=== PATIENT | female | born 1965 | race Caucasian/White ===

== ENCOUNTER → 2020-04-09 17:19 | Outpatient (CLI) | payer OTHER, SELFPAY ==
--- NOTE | ~2020-04-09 | MM_ITS ---
EXAMINATION: MM screening loli BI w halle HISTORY: Screening mammogram TECHNIQUE: Craniocaudal and mediolateral oblique 3-D tomosynthesis images were obtained and synthetic 2-D images were generated. CAD analysis was submitted and interpreted. COMPARISON: 04/17/2018, 06/19/2016, 06/14/2015 BREAST PARENCHYMAL COMPOSITION: There are scattered areas of fibroglandular density. FINDINGS: There is stable focal asymmetry in the upper outer quadrant of the right breast. There is n o evidence of suspicious mass, calcification, or architectural distortion to suggest malignancy in ei ther breast. There has been no suspicious interval change. IMPRESSION: 1. No mammographic evidence of malignancy. 2. Recommend routine screening mammography in one year. BI-RADS Category 2: Benign finding(s). Reviewed, dictated and finalized at location A. RAISING CONSULTANT
== END ==
PROVIDERS: Visit Provider Internal Medicine
DX: Z12.31 Encounter for screening mammogram for malignant neoplasm of breast (principal)
CPT/HCPCS: 77063; 77067

== ENCOUNTER → 2022-04-02 16:09 | Outpatient (CLI) | payer BC, SELFPAY ==
--- NOTE | ~2022-04-02 | MM_ITS ---
EXAMINATION: MM screening loli BI w halle HISTORY: Screening TECHNIQUE: Craniocaudal and mediolateral oblique 3-D tomosynthesis images were obtained and synthetic 2-D images were generated. CAD analysis was submitted and interpreted. COMPARISON: Comparison to multiple prior studies sequentially, with oldest reviewed study dated 03/2013. BREAST PARENCHYMAL COMPOSITION: There are scattered areas of fibroglandular density. FINDINGS: There is no evidence of suspicious mass, calcification, or architectural distortion to sugg est malignancy in either breast. There has been no suspicious interval change. IMPRESSION: 1. No mammographic evidence of malignancy. 2. Recommend routine screening mammography in one year. BI-RADS Category 1: Negative Reviewed, dictated and finalized at location A. E GLAZER
== END ==
PROVIDERS: PCP Internal Medicine; Visit Provider Internal Medicine
DX: Z12.31 Encounter for screening mammogram for malignant neoplasm of breast (principal)
CPT/HCPCS: 77063; 77067

== ENCOUNTER 2023-03-06 09:06 | Emergency (ER) | payer BC, SELFPAY ==
--- NOTE | ~2023-03-06 | XR_ITS ---
EXAMINATION: XR chest 2V DATE: 03/06/2023 10:00 INDICATION: Cough. Chest tightness. TECHNIQUE: Frontal and lateral views of the chest were obtained on 3 radiographs. COMPARISON: None. FINDINGS: There is no pneumonia, pleural effusion, or pneumothorax. The heart size is normal. IMPRESSION: 1. No acute cardiopulmonary disease. Reviewed, dictated and finalized at location A. RAL OFFICE WORKER
[2023-03-06 09:27] VITALS: BP 154/78; PULSE 78; RESP 16; TEMP 36.6; O2SAT 98
--- NOTE | 2023-03-06 09:29 | ED.ASTHMA ---
HPI - Asthma General Chief Complaint: Asthma Stated Complaint: chest hurts,cough, asthma history Time Seen by Provider: 03/06/23 09:30 Source: patient Mode of arrival: ambulatory Limitations: no limitations History of Present Illness HPI Narrative: Joleen is a 58-year-old female patient presenting to the clinic today with complaints of chest heaviness and coughing. She reports that a week before [place] she was seen at an urgent care at her work and they prescribed her some prednisone and a Symbicort inhaler. States she does have a history of asthma. Symptoms have been gradually getting worse from the changes of the temperature. She finished her prednisone last week and was feeling pretty good. States that over the last few days she developed more chest heaviness and a cough with white phlegm. Reports some bilateral back pain at the bases of her lungs. She would like to have a chest x-ray done today to evaluate for pneumonia. She denies any fever or chills. Is able to speak in full sentences. SpO2 is 98% on room air. Related Data Home Medications Medication Instructions Recorded Confirmed budesonide-formoterol HFA 80 inhalation 03/06/23 mcg-4.5 mcg/actuation aerosol inhaler (Symbicort) carvedilol 25 mg tablet mg 03/06/23 diltiazem HCl 300 mg mg PO 03/06/23 capsule,extended release 24 hr metformin 500 mg tablet mg 03/06/23 montelukast 10 mg tablet mg 03/06/23 olmesartan 40 tablet 03/06/23 mg-hydrochlorothiazide 12.5 mg tablet topiramate 50 mg tablet mg 03/06/23 trazodone 150 mg tablet mg 03/06/23 venlafaxine 100 mg tablet mg 03/06/23 Allergies Allergy/AdvReac Type Severity Reaction Status Date / Time No Known Allergies Allergy Verified 03/06/23 09:39 [facility] Comments At the time of my signature, I reviewed and agree with the nursing past medical, surgical, social, and family history. There is no relevant family history pertinent to the patient complaint. Course Course Emergency Course: Portions of this record may have been created with voice recognition software. Level of Care: Express Care Visit Vital Signs Vital signs: Vital Signs Temperature 36.6 C 03/06/23 09:27 Pulse Rate 78 03/06/23 09:27 Respiratory Rate 16 03/06/23 09:27 Blood Pressure 154/78 H 03/06/23 09:27 Pulse Oximetry 98 03/06/23 09:27 Oxygen Delivery Room Air 03/06/23 09:27 Temperature 36.6 C 03/06/23 09:27 Pulse Rate 78 03/06/23 09:27 Respiratory Rate 16 03/06/23 09:27 Blood Pressure 154/78 H 03/06/23 09:27 Pulse Oximetry 98 03/06/23 09:27 Oxygen Delivery Room Air 03/06/23 09:27 Vital signs reviewed MDM - Asthma MDM Narrative Medical decision making narrative: At the time of visit patient is resting comfortably on the exam table. Patient appears to be nontoxic. X-ray of the chest was performed and shows no sign of pneumonia. I suspect patient has mild exacerbation of asthma. Prednisone 10 day taper dose was sent to the pharmacy. Supportive measures were discussed with the patient and they voiced understanding discharge instructions and agrees to treatment plan. Return precautions reviewed Differential Diagnosis Differential diagnosis: Likely Acute exacerbation, Status asthmaticus, Acute asthmatic bronchitis, PE, Pneumonia and COPD exacerbation Imaging Data Radiologist's impression: ITS Impressions Chest X-Ray 03/06/23 10:04 IMPRESSION: 1. No acute cardiopulmonary disease. Discharge Plan Discharge Clinical Impression: Asthma Qualifiers: Asthma severity: mild Asthma persistence: intermittent Asthma complication type: uncomplicated Qualified Code(s): J45.20 - Mild intermittent asthma, uncomplicated Patient Disposition: Home, Self-Care Condition: Stable Instructions: Antibiotic Form, Asthma (ED) Additional Instructions: Take prescription medications only as prescribed-taper dose prednisone prescribed Continue current medicatio
== END 2023-03-06 10:14 | disposition home or self-care (01) ==
PROVIDERS: Emergency Provider Nurse Practitioner Family
DX: J45.20 Mild intermittent asthma, uncomplicated (principal); I10 Essential (primary) hypertension
CPT/HCPCS: 71046; 99213; G0463

== ENCOUNTER 2024-05-15 09:05 | Emergency (ER) | payer BC, SELFPAY ==
--- NOTE | 2024-05-15 09:07 | ED_ITS ---
HPI - URI/Sore Throat General Chief Complaint: Upper Respiratory Infection Stated Complaint: Sinus/Cough Time Seen by Provider: 05/15/24 09:20 Source: patient, RN notes reviewed and old records reviewed Mode of arrival: ambulatory Limitations: no limitations History of Present Illness HPI Narrative: 59-year-old female presents to the [facility] with history productive cough, sinus congestion. Has history of asthma, hypertension migraines, anxiety depression. Has been taking Coricidin. Denies any chest pain fevers. Denies shortness of breath. Last used her inhaler was yesterday. Onset (ago): day(s) (5) Related Data Home Medications ?Medication ?Instructions ?Recorded ?Confirmed ?Last Taken ?Type budesonide-formoterol HFA 80 inhalation 03/06/23 Unknown History mcg-4.5 mcg/actuation aerosol inhaler (Symbicort) carvedilol 25 mg tablet mg 03/06/23 Unknown History diltiazem HCl 300 mg mg PO 03/06/23 Unknown History capsule,extended release 24 hr metformin 500 mg tablet mg 03/06/23 Unknown History montelukast 10 mg tablet mg 03/06/23 Unknown History olmesartan 40 tablet 03/06/23 Unknown History mg-hydrochlorothiazide 12.5 mg tablet topiramate 50 mg tablet mg 03/06/23 Unknown History trazodone 150 mg tablet mg 03/06/23 Unknown History venlafaxine 100 mg tablet mg 03/06/23 Unknown History buspirone 10 mg tablet mg 05/15/24 Unknown History Allergies Allergy/AdvReac Type Severity Reaction Status Date / Time No Known Allergies Allergy Verified 05/15/24 09:10 Review of Systems Review of Systems: All systems reviewed & are unremarkable except as noted in HPI and below Constitutional: Constitutional: Reports no additional constitutional complaints ENT: Reports as per HPI and Reports nasal congestion Cardiovascular: Cardiovascular: Reports no additional cardiovascular complaints, Denies chest pain and Denies dyspnea Respiratory: Respiratory: Reports as per HPI, Denies chest congestion, Reports cough, Denies dyspnea and Denies wheezing Musculoskeletal: Musculoskeletal: Reports no additional musculoskeletal complaints Integumentary/Breasts: Skin/Breast: Reports system reviewed and no additional complaints, except as docu [facility] Past Medical History Medical History (Updated 05/15/24 @ 09:42 by Migdalia Henley APRN) History of anxiety History of migraine History of primary hypertension Social History Social History (Updated 05/15/24 @ 09:42 by Migdalia Henley APRN) Smoking status: Former smoker Comments At the time of my signature, I reviewed and agree with the nursing past medical, surgical, social, and family history. There is no relevant family history pertinent to the patient complaint. Exam Const: General: cooperative, healthy appearing, comfortable, no acute distress, well developed, alert and well nourished Nutritional Appearance: well nourished and obese Orientation/consciousness: patient oriented x3 Limitations: no limitations HENMT: Head: normal to inspection Ears: hearing grossly normal bilaterally, external ears normal, TM's normal bilaterally, EAC's normal, mastoids normal and no periauricular adenopathy Face/Nose/Sinus: Normal external nose present, Normal nares present and Normal nasal mucous membranes and turbinates present Mouth: Yes Normal oral and palatal mucosa present, Yes lip normal, Yes tongue normal and Yes moist mucous membranes Throat: uvula midline, postnasal drainage and no uvular edema Eyes: General: appearance normal, both eyes and all related structures Alignment and Position: alignment normal Neck: Neck: normal visual inspection, full ROM, no lymphadenopathy and no meningeal signs Chest: Chest palpation & inspection: normal inspection of the chest Resp: Effort & Inspection: normal respiratory effort and able to speak in complete sentences Auscultation: clear to auscultation bilaterally, no crackles, no rales, no rhonchi and no wheezes Cardio: Rate: regular rate Skin: General skin exam: normal color and no rashes or lesions noted Neuro: General: patient oriented x3, gait normal, moves all extremities and no meningeal signs Cognition (Neuro): normal cognition Speech: normal speech Gait exam (Neuro): Normal gait present Extrem: General: normal to inspection, full ROM, capillary refill normal and normal gait Psych: Appearance: grossly normal and well kempt Mental Status: mental status grossly normal Speech and movement: Normal speech and movement present and Clear speech present Affect: normal affect Attitude: cooperative Course Course Level of Care: Express Care Visit Vital Signs Vital signs: Vital Signs Temperature 98.2 F 05/15/24 09:16 Pulse Rate 70 05/15/24 09:16 Respiratory Rate 16 05/15/24 09:16 Blood Pressure 130/64 05/15/24 09:16 Pulse Oximetry 98 05/15/24 09:16 Oxygen Delivery Room Air 05/15/24 09:16 Temperature 98.2 F 05/15/24 09:16 Pulse Rate 70 05/15/24 09:16 Respiratory Rate 16 05/15/24 09:16 Blood Pressure 130/64 05/15/24 09:16 Pulse Oximetry 98 05/15/24 09:16 Oxygen Delivery Room Air 05/15/24 09:16 Reviewed MDM - URI/Sore Throat MDM Narrative Medical decision making narrative: Patient sitting comfortably in exam. Nontoxic, Vitals stable. Five day history cough, congestion. Patient reports history asthma. No acute findings exam except for postnasal drainage. Patient appropriate for outpatient treatment with close Discharge instructions reviewed with patient, as well as provided in writing per nursing staff. The instructions also include specific and strict return/GO TO THE ER as well as f/u information. All questions have been answered, and the patient deny any further questions with discharge and discharge plan. Some parts of this dictation were generated by voice recognition software and may contain typographical and/or grammatical inaccuracies. Differential Diagnosis Differential diagnosis: Likely upper respiratory infection, otitis media, sinusitis, viral infection, bronchitis, influenza and pharyngitis Critical Care Time Critical Care Time Critical Care Time: No Discharge Plan Discharge Clinical Impression: Upper respiratory infection, Bronchitis, History of asthma Patient Disposition: Home, Self-Care Condition: Stable Instructions: Antibiotic Form, Upper Respiratory Infection (ED), Acute Bronchitis (ED) Additional Instructions: It is very important to treat your symptoms. Drink plenty of water, Gatorade, Pedialyte, ice pops or Jell-O. -Alternate Tylenol and Motrin per package directions for fever or pain. You can alternate every 4 hours -Antihistamine medication such as Zyrtec/Claritin/Li during the day can help improve symptoms. -doing daily nasal irrigations can help relieve pressure your sinuses. Things like a Neti pot or neilmed saline irrigation -Use Flonase twice a day for 5 days then daily to help reduce the inflammation and dry up your sinuses. -You can also use Coricidin HBP or Mucinex. Be sure to drink plenty of water with this medication at least 8 ounces with every dose and it is important to drink 8 to 10 glasses of water per day. Water is a natural decongestant -Eat and drink things that are easy to swallow, like tea or soup, or popsicles. -Oral rinses such as: Salt water gargles and/or may use topical anesthetic (eg. Chloraseptic spray) or lozenges to relieve dryness or throat pain). -Frequent hand washing or hand radiation / chemistry technician is one of the best ways to prevent spread of infection. -Using a vaporizer or humidifier at night will also help thin secretions and help with coughing up phlegm. -Follow up with primary care provider in 7-10 days if condition is not improving - For new or worsening symptoms go directly to the nearest ER Patient Language: Albanian Prescriptions: New methylprednisolone [Medrol (Javier)] 4 mg tablets,dose pack See Rx Instructions PO .COMPLEX Qty: 21 0RF Rx Instructions: orally per package directions doxycycline monohydrate 100 mg tablet 100 mg PO BID Qty: 14 0RF No Action metformin 500 mg tablet carvedilol 25 mg tablet venlafaxine 100 mg tablet diltiazem HCl 300 mg capsule,extended release 24hr PO trazodone 150 mg tablet montelukast 10 mg tablet olmesartan-hydrochlorothiazide 40-12.5 mg tablet topiramate 50 mg tablet budesonide-formoterol [Symbicort] 80-4.5 mcg/actuation HFA aerosol inhaler INHALATION buspirone 10 mg tablet Follow-up/Referrals: UNKNOWN,DOCTOR [Non-Staff] - Stand Alone Forms: Work/School Release IP Time of Disposition: 09:31
[2024-05-15 09:16] VITALS: BP 130/64; PULSE 70; RESP 16; TEMP 36.8; O2SAT 98
== END 2024-05-15 09:40 | disposition home or self-care (01) ==
PROVIDERS: Emergency Provider Nurse Practitioner; PCP Internal Medicine
DX: J06.9 Acute upper respiratory infection, unspecified (principal); J40 Bronchitis, not specified as acute or chronic; I10 Essential (primary) hypertension; Z87.891 Personal history of nicotine dependence
CPT/HCPCS: 99213; G0463

== ENCOUNTER 2024-10-18 13:21 | Outpatient (CLI) | payer BC, SELFPAY ==
--- NOTE | ~2024-10-18 | MM_ITS ---
EXAMINATION: MM screening loli BI w halle HISTORY: Screening TECHNIQUE: Craniocaudal and mediolateral oblique 3-D tomosynthesis images were obtained and synthetic 2-D images were generated. CAD analysis was submitted and interpreted. COMPARISON: Comparison to multiple prior studies sequentially, with oldest reviewed study dated 11/2015. BREAST PARENCHYMAL COMPOSITION: Not dense: There are scattered areas of fibroglandular density. FINDINGS: There is no evidence of suspicious mass, calcification, or architectural distortion to sugg est malignancy in either breast. There has been no suspicious interval change. IMPRESSION: 1. No mammographic evidence of malignancy. 2. Recommend routine screening mammography in one year. BI-RADS Category 1: Negative Reviewed, dictated and finalized at location A.
== END 2024-10-18 13:22 | disposition home or self-care (01) ==
LOC: MICIMG 13:21
PROVIDERS: PCP Internal Medicine; Visit Provider Internal Medicine
DX: Z12.31 Encounter for screening mammogram for malignant neoplasm of breast (principal)
CPT/HCPCS: 77063; 77067